=== PATIENT | male | born 1955 | race Caucasian/White ===

== ENCOUNTER 2019-09-26 13:49 | Emergency (ER) | payer BC ==
--- NOTE | 2019-09-26 14:18 | UC ---
Laceration HPI - HPI Summary HPI Summary: 64 yo male presents with LEFT hand laceration. He tells me that about 20min [employer] he was using a utility knife and it slipped and punctured his left hand. He bandaged the area and came to . Unsure date of last tetanus. He is right handed. - History Of Current Complaint Stated Complaint: HAND LACERATION Time Seen by Provider: 09/26/19 14:18 Hx Obtained From: Patient Laceration Location: Hand Mechanism Of Injury: Sharp Trauma Onset/Duration: Sudden Onset - Allergies/Home Medications Allergies/Adverse Reactions: Allergies Allergy/AdvReac Type Severity Reaction Status Date / Time Penicillins Allergy Unknown Verified 09/26/19 14:23 Reaction Details PMH/Surg Hx/FS Hx/Imm Hx Cardiovascular History: Hypertension Respiratory History: Asthma - Surgical History Surgical History: Yes Surgery Procedure, Year, and Place: Appendix - Family History Known Family History: Positive: Hypertension - Social History Occupation: Employed Full-time Lives: With Family Alcohol Use: Occasionally Substance Use Type: None Smoking Status (MU): Never Smoked Tobacco Review of Systems All Other Systems Reviewed And Are Negative: No Constitutional: Positive: Negative Skin: Positive: Other - Hand laceration Respiratory: Positive: Negative Cardiovascular: Positive: Negative Neurological: Positive: Negative Psychological: Positive: Negative Physical Exam - Summary Physical Exam Summary: GENERAL: NAD. WDWN. No pain distress. SKIN: LEFT HAND: at the dorsal web spacing between the 1st and 2nd digit there is a 1.5cm elliptical shaped laceration. Mild active bleeding. No tendon involvement. NECK: Supple. Nontender. No lymphadenopathy. CHEST: No accessory muscle use. Breathing comfortably and in no distress. CV: Pulses intact. Cap refill <2seconds MSK: FROM left thumb and index. NEURO: Alert. PSYCH: Age appropriate behavior. Triage Information Reviewed: Yes Vital Signs: Vital Signs: Temp Pulse Resp BP Pulse Ox 98.5 F 87 18 145/87 97 09/26/19 14:16 09/26/19 14:16 09/26/19 14:16 09/26/19 14:16 09/26/19 14:16 Vital Signs Reviewed: Yes Laceration Repair - Laceration Repair 1 Description: Linear Laceration Size After Repair: Length (cm) - 1.5 Modified For Repair: No Anesthesia Used: 2.0% Lido Irrigation With Pressure Irrigation Device: Yes Closure Material: Sutures - #4 Closure Method: Single Layer Suture Of: Skin Suture Type: Prolene - 5-0 Laceration Course/Dx - Course/Dx Course Of Treatment: The procedure was explained to the pt and all questions were answered. A time out was performed, witnessed, and signed. The area was irrigated with 150mL sterile saline. 1.5mL of 2% lidocaine without epi was administered and good anesthetization was achieved. In the usual sterile fashion, FOUR 5-0 prolene interrupted sutures were placed. Homeostasis achieved. The wound was bandaged with telfa . Pt tolerated procedure well. tdap updated today - Diagnosis Provider Diagnosis: Laceration of left hand Discharge ED - Sign-Out/Discharge Documenting (check all that apply): Patient Departure All imaging exams completed and their final reports reviewed: No Studies - Discharge Plan Condition: Stable Disposition: HOME Patient Education Materials: Care For Your Stitches (ED), Laceration (ED) Referrals: Senait Culp MD [Primary Care Provider] - Additional Instructions: If you develop a fever, shortness of breath, chest pain, new or worsening symptoms - please call your PCP or go to the ED immediately. Your blood pressure was high at todays visit. Please see your primary provider within 4 weeks for recheck and re-evaluation. 1) Please keep the area bandage, clean, dry, and intact for the next 24- 48hours. Then change the bandage daily until sutures are removed. 2) If you develop a fever, colored or thick discharge, increased pain or swelling - please call your PCP or return for a wound check. 3) Please return in 7-10 days to have your FOUR sutures removed. - Billing Disposition and Condition Condition: STABLE Disposition: Home
[2019-09-26 14:22] VITALS: BP 145/87
[2019-09-26] MEDS ORDERED: Tetan/Diph/Pertus SYR(Tdap)* 0.5 ML SYR(BOOSTRIX) use SYR contains LATEX IM ONE (14:26)
[2019-09-26] MEDS ORDERED: Lidocaine 2% PF * 5 ML VIAL INJ ONE (14:31)
== END 2019-09-26 15:04 | disposition home or self-care (01) ==
LOC: UCEAST 13:49
DX: S61.412A Laceration without foreign body of left hand, initial encounter (principal); I10 Essential (primary) hypertension; J45.909 Unspecified asthma, uncomplicated; Z23 Encounter for immunization; Z88.0 Allergy status to penicillin; W26.0XXA Contact with knife, initial encounter; Y92.9 Unspecified place or not applicable
CPT/HCPCS: 12001; 90471; 90715; 99211; G0463